=== PATIENT | male | born 1955 | race Hispanic/Latino ===

== ENCOUNTER 2020-12-14 23:33 | Emergency (ER) | payer OTHER ==
[~2020-12-14] VITALS: Ht 160 cm; Wt 96.2 kg
[2020-12-15] MEDS ORDERED: PANTOPRAZOLE 40 MG/VIAL IVP ONE (01:45)
[2020-12-15] MEDS ORDERED: KETOROLAC 30MG VIAL (30MG/ML) IVP ONE (01:45)
[2020-12-15] MEDS ORDERED: 0.9%NACL 1000ML 1,000 ML IV ONE ×2 (01:45)
[2020-12-15] MEDS ORDERED: ONDANSETRON 4MG INJ IVP ONE (01:45)
[2020-12-15] MEDS ORDERED: FAMOTIDINE 20MG VIAL IV ONE (01:45)
[2020-12-15] MEDS ORDERED: 0.9%NACL 1000ML 2,000 ML IV ONE (02:24)
[2020-12-15 02:27] LABS: BASOPHILS % (AUTO) 0.1 % (0.0-5.0); HEMATOCRIT 45.2 % (42-54); LYMPHOCYTES % (AUTO) 6.5 % (21.0-51.0); MEAN CORPUSCULAR HEMOGLOBIN 34.8 pg (27.0-33.0); MEAN CORPUSCULAR HGB CONC 34.1 g/dL (32.0-36.0); MONOCYTES % (AUTO) 4.3 % (3.0-13.0); NEUTROPHILS % (AUTO) 88.6 % (40.0-77.0); PLATELET COUNT (AUTO) 231 K/uL (130-400); RED BLOOD CELL COUNT(AUTO) 4.43 MIL/uL (4.50-6.20); RED CELL DISTRIBUTION WIDTH 12.5 % (11.0-15.5); WHITE BLOOD COUNT (AUTO) 10.1 K/uL (4.8-10.8)
[2020-12-15 02:39] LABS: CREATININE 0.9 mg/dL (0.5-1.5); POTASSIUM 4.7 mmol/L (3.5-5.1)
[2020-12-15] MEDS ORDERED: IOHEXOL-350 75 ML VIAL IV ONE (02:42)
[2020-12-15 02:44] LABS: ALBUMIN 3.8 g/dL (3.5-5.0); BILIRUBIN,TOTAL 0.4 mg/dL (0.2-1.0); TOTAL PROTEIN, SERUM 7.4 g/dL (6.0-8.3)
[2020-12-15 05:02] LABS: APPEARANCE,URINE Clear (CLEAR); BILIRUBIN,URINE Negative (NEGATIVE); COLOR,URINE Yellow (YELLOW); GLUCOSE, URINE (UA) Negative (NEGATIVE); KETONES,URINE Negative (NEGATIVE); LEUKOCYTE ESTERASE ,URINE Negative (NEGATIVE); NITRATE,URINE Negative (NEGATIVE); OCCULT BLOOD,URINE Negative (NEGATIVE); PH,URINE 6.5 (5.0-8.0); PROTEIN,URINE Negative (NEGATIVE); UROBILINOGEN,URINE 0.2 mg/dL (0.2-1.0)
[2020-12-15 05:06] VITALS: BP 136/84
[2020-12-15] MEDS ORDERED: BENZ-17 PO (05:14)
[2020-12-15] MEDS ORDERED: CYCL10TA7 PO (05:14)
[2020-12-15] MEDS ORDERED: MELO7.5T12 PO (05:14)
[2020-12-15] MEDS ORDERED: BENZONATATE 100 MG CAPSULE PO SCH (05:15)
[2020-12-15] MEDS ORDERED: CYCLOBENZAPRINE HCL 10 MG TABLET PO ONE (05:15)
== END 2020-12-15 05:23 | disposition home or self-care (01) ==
LOC: EDH 23:33
DX: S39.011A Strain of muscle, fascia and tendon of abdomen, initial encounter (principal); E86.1 Hypovolemia; R05 Cough; R09.81 Nasal congestion; R50.9 Fever, unspecified; Z79.899 Other long term (current) drug therapy; X58.XXXA Exposure to other specified factors, initial encounter; Y93.89 Activity, other specified; Y92.89 Other specified places as the place of occurrence of the external cause; Y99.8 Other external cause status
CPT/HCPCS: 36415; 71045; 74177; 80053; 81003; 83690; 84484; 85025; 87088; 96361; 96374; 96375; 99285; C9113; J1885; J2405; J3490; J7030; Q9967

== ENCOUNTER 2024-01-18 12:03 | Emergency (ER) | payer OTHER ==
[~2024-01-18] VITALS: Ht 160 cm; Wt 86.2 kg
[~2024-01-18 12:03] MED LIST: BENZ-17 PO; CYCL-309 PO; MELO7.5T12 PO
[2024-01-18 13:00] LABS: BASOPHILS # (AUTO) 0.03 K/uL (0.00-0.20); BASOPHILS % (AUTO) 0.5 % (0.0-5.0); EOSINOPHILS # (AUTO) 0.26 K/uL (0.00-0.70); EOSINOPHILS % (AUTO) 4.2 % (0.0-8.0); HEMATOCRIT 43.9 % (42-54); IMMATURE GRANULOCYTE ABSOLUTE 0.03 K/uL (0-1); LYMPHOCYTES % (AUTO) 16.8 % (21.0-51.0); MEAN CORPUSCULAR HEMOGLOBIN 35.1 pg (27.0-33.0); MEAN CORPUSCULAR HGB CONC 34.9 g/dL (32.0-36.0); MEAN CORPUSCULAR VOLUME 100.7 fL (79-99); MONOCYTES # (AUTO) 0.8 K/uL (0.1-1.0); MONOCYTES % (AUTO) 12.6 % (3.0-13.0); NEUTROPHILS # (AUTO) 4.1 K/uL (1.8-7.7); NEUTROPHILS % (AUTO) 65.4 % (40.0-77.0); PLATELET COUNT (AUTO) 202 K/uL (130-400); RED BLOOD CELL COUNT(AUTO) 4.36 MIL/uL (4.50-6.20); RED CELL DISTRIBUTION WIDTH 12.3 % (11.0-15.5); WHITE BLOOD COUNT (AUTO) 6.2 K/uL (4.8-10.8)
[2024-01-18 13:08] LABS: CREATININE 0.7 mg/dL (0.5-1.3); POTASSIUM 4.4 mmol/L (3.5-5.1)
[2024-01-18 13:12] LABS: INR 1.01 (0.85-1.15); PROTHROMBIN TIME 10.9 SEC (9.6-11.6)
[2024-01-18 13:18] LABS: B-TYPE NATRIURETIC PEPTIDE 6 pg/mL (0-100)
[2024-01-18] MEDS: ACETAMINOPHEN 500 MG TABLET PO ONE (14:23)
[2024-01-18 14:27] VITALS: BP 126/69; PULSE 70; RESP 20; O2SAT 100
== END 2024-01-18 14:52 | disposition home or self-care (01) ==
LOC: EDH 12:03
DX: U07.1 COVID-19 (principal); R07.89 Other chest pain; Z77.110 Contact with and (suspected) exposure to air pollution; Z79.899 Other long term (current) drug therapy; Z98.890 Other specified postprocedural states
CPT/HCPCS: 36415; 71045; 80048; 83880; 84484; 85025; 85610; 87426; 93005